=== PATIENT | female | born 1945 | race Caucasian/White ===

== ENCOUNTER → 2016-10-23 | Outpatient (CLI) | payer MEDICARE ==
--- NOTE | 2016-10-24 09:33 | MM ---
Reason for exam: screening (asymptomatic). Last mammogram was performed 1 year and 4 months ago. History: Patient is postmenopausal and had first child at age 38. Cancelled Right US Needle Biopsy of the right breast, April 03, 2006. Took estrogen for 4 years 7 months beginning at age 56. Physical Findings: A clinical breast exam by your physician is recommended on an annual basis and results should be correlated with mammographic findings. MG 3D Screening Mammo W/Cad Bilateral CC and MLO view(s) were taken. Prior study comparison: July 05, 2015, right breast MG work up mamm w CAD RT. June 27, 2015, bilateral MG screening mammo w CAD. The breast tissue is heterogeneously dense. This may lower the sensitivity of mammography. There is chronic nodularity bilaterally. There is no dominant lesion. No significant changes when compared with prior studies. ASSESSMENT: Benign, BI-RAD 2 RECOMMENDATION: Routine screening mammogram of both breasts in 1 year.
== END | disposition home or self-care (01) ==
LOC: RADMAMWWP 14:06
PROVIDERS: ATTEND Family Medicine
DX: Z12.31 Encounter for screening mammogram for malignant neoplasm of breast (principal)
CPT/HCPCS: 77063; G0202

== ENCOUNTER → 2021-02-22 | Outpatient (CLI) | payer MEDICARE ==
[2021-02-22 08:59] VITALS: BP 151/78; PULSE 73; RESP 18; TEMP 98.4
--- NOTE | 2021-02-22 09:52 | P.GSHP ---
History of Present Illness H&P Date: 02/22/21 Chief Complaint: Abnormal left breast mammogram Tamra is a 75-year-old white female who was noted to have an abnormal left breast mammogram and is seen in consultation for Dr. Ca. The patient had a bilateral mammogram performed on 1220 120. This revealed an area of concern in the left breast for which a diagnostic left breast mammogram was performed. This was persistent and an ultrasound was performed. The ultrasound revealed a 0.9 x 0.5 cm lesion widely than tall located 1 cm from the nipple at the 5 o'clock position. Ultrasound aspiration versus core biopsy was recommended. The patient does not feel any lumps masses or nodules of concern. She is not complaining of any nipple discharge or skin changes. He has not had any recent trauma or infection of the breast. She did have a condition for biopsy in the remote past however when the looked at the breast when she came back and they did not see anything of concern in just follow her conservatively. Caffeine: 2-3 cups per day Nicotine: Negative stopped smoking 38 years ago Chocolate: Occasional Family history: Mother: Melanoma Patient: Previous skin cancer Hormonal history: Menarche: 13 1 miscarriage, first at 38, didn't breast-feed Hysterectomy at approximately 43 total abdominal hysterectomy with nephrectomy for fibroid tumors and bleeding: Approximately 1 year after the hysterectomy control pills: Negative Past surgical history: Total abdominal hysterectomy with bilateral salpingo-oophorectomy Appendectomy Tonsillectomy Left knee surgery Medical history: High cholesterol Anxiety/ is recently HTN Social history: Alcohol: Occasional Nicotine: Stopped 38 years ago Drugs: Negative - Constitutional Constitutional: Denies chills, Denies fever - EENT Eyes: denies blurred vision, denies pain Ears: deny: decreased hearing, tinnitus Ears, nose, mouth and throat: Denies headache, Denies sore throat - Breasts Breasts: bilateral: as per HPI - Cardiovascular Cardiovascular: Denies chest pain, Denies shortness of breath - Respiratory Respiratory: Denies cough, Denies 7 - Gastrointestinal Gastrointestinal: Denies abdominal pain, Denies diarrhea, Denies nausea, Denies vomiting - Genitourinary (Female) Genitourinary: Denies dysuria, Denies hematuria - Menstruation Menstruation: Reports post hysterectomy (contracture of fifth digit on the right) - Musculoskeletal Comment: Contracture fifth digit on the right hand Musculoskeletal: Denies myalgias - Integumentary Integumentary: Denies pruritus, Denies rash - Neurological Neurological: Denies numbness, Denies weakness - Psychiatric Psychiatric: Reports anxiety - Endocrine Endocrine: Denies fatigue, Denies weight change - Hematologic/Lymphatic Comment: none - Allergic/Immunologic Allergic/Immunologic: Reports as per HPI Past Medical History Past Medical History: Hyperlipidemia, Hypertension History of Any Multi-Drug Resistant Organisms: None Reported Past Surgical History: Appendectomy, Hysterectomy, Orthopedic Surgery, Tonsillectomy Additional Past Surgical History / Comment(s): left knee arthroscopy Past Anesthesia/Blood Transfusion Reactions: No Reported Reaction Past Psychological History: Anxiety Smoking Status: Former smoker Past Alcohol Use History: Occasional Past Drug Use History: None Reported Medications and Allergies Home Medications Medication Instructions Recorded Confirmed Type Melatonin 5 mg PO HS 02/18/21 02/22/21 History Simvastatin [Zocor] 20 mg PO DAILY 02/18/21 02/22/21 History buPROPion HCL [Wellbutrin XL] 300 mg PO DAILY 02/18/21 02/22/21 History hydroCHLOROthiazide 25 mg PO DAILY 02/18/21 02/22/21 History lisinopriL [Zestril] 5 mg PO DAILY 02/18/21 02/22/21 History Allergies Allergy/AdvReac Type Severity Reaction Status Date / Time Penicillins Allergy Unknown Verified 02/22/21 08:50 Surgical - Exam Vital Signs Temp Pulse Resp BP Pulse Ox 98.4 F 73 18 151/78 98 02/22/21 08:51 02/22/21 08:51 02/22/21 08:51 02/22/21 08:51 02/22/21 08:51 BMI 25.2 - General no distress - Eyes normal ocular movement - ENT normal pinna, normal nares - Neck no masses, trachea midline - Respiratory normal respiratory effort, clear to auscultation - Cardiovascular Rhythm: regular Heart Sounds: normal: S1, S2 - Integumentary normal turgor - Neurologic no disoriented, no combative - Musculoskeletal normal gait - Psychiatric oriented to time, oriented to person, oriented to place, speech is normal, memory intact Breast exam: BRA: 34B inspection: bilateral grade 2 ptosis palpation: Carrasco: Multiple positional exam fibrocystic changes, no dominant masses or nodules of concern Right axilla: No adenopathy of concern Left breast: Multi-positional exam other cystic changes, particularly attention to the area of concern did not reveal any discrete masses or nodules of concern Left axilla: No adenopathy of concern Results mammogram and ultrasound reviewed Assessment and Plan Assessment: Impression: High cholesterol Anxiety/ is recently HTN Bilateral fibrocystic breast changes Radiographic abnormality left breast Plan: 1. Ultrasound guided FNA versus core biopsy of left breast 2. Follow-up after ultrasound biopsy Risks and benefits of procedure discussed with the patient. It is possible that at the time of the procedure that there will not be able to be demonstrated the area of concern in which case 6 month precautionary films would be recommended. CC: Dr. Ca Encounter 45 minutes, time spent excluding patient, reviewing the records, and counseling.
== END ==
LOC: WWCWWP 08:42
PROVIDERS: ATTEND Surgery
DX: N60.12 Diffuse cystic mastopathy of left breast (principal); N60.11 Diffuse cystic mastopathy of right breast; I10 Essential (primary) hypertension; E78.00 Pure hypercholesterolemia, unspecified; F41.9 Anxiety disorder, unspecified; E78.5 Hyperlipidemia, unspecified; Z87.891 Personal history of nicotine dependence; Z79.899 Other long term (current) drug therapy; Z88.0 Allergy status to penicillin

== ENCOUNTER → 2021-02-27 | Day surgery (SDC) | payer MEDICARE ==
[2021-02-27 07:35] VITALS: BP 145/77; PULSE 73; RESP 16; TEMP 98.2
--- NOTE | 2021-02-27 09:40 | USB ---
Exam: Ultrasound discontinued breast biopsy left COMPARISON: Mammogram 1 05/05/2021 and 10/18/2020 ultrasound outside institution. FINDINGS: The left Ultrasound Breast biopsy was canceled. At 5:00 there is a minimally complex cyst w ith partial septation measuring 0.8 x 0.4 x 0.4 cm. This is probably benign. Recommend 6 month follow -up left breast ultrasound. IMPRESSION: 1. The left ultrasound breast biopsy was canceled. At 5:00, there is a minimally complex cyst measuri ng 8 mm. This is probably benign. Recommend 6 month follow-up left breast ultrasound. BI-RADS 3: Probably benign Recommend 6 month follow-up left breast ultrasound.
== END ==
LOC: RADUSWWP 07:02
PROVIDERS: ATTEND Surgery
DX: R92.8 Other abnormal and inconclusive findings on diagnostic imaging of breast (principal); Z53.8 Procedure and treatment not carried out for other reasons; N60.02 Solitary cyst of left breast; Z88.0 Allergy status to penicillin

== ENCOUNTER → 2021-08-30 | Outpatient (CLI) | payer MEDICARE ==
--- NOTE | 2021-09-02 09:42 | USB ---
Reason for exam: follow-up at short interval from prior study. History: Patient is postmenopausal and had first child at age 38. US discontinued breast bx LT of the left breast, February 27, 2021. Cancelled Right US Needle Biopsy of the right breast, April 03, 2006. Took estrogen for 4 years 7 months beginning at age 56. Physical Findings: Nurse Summary: 0.5cm palpable (nurse ms). US Breast Limited LT Left limited breast ultrasound including focal area of concern, retroareolar and axilla demonstrates a 0.8 x 0.3 x 0.6cm oval lesion at 1 o'clock anechoic but possible feeding vessel and a 0.7 x 0.4 x 0.5cm cystic lesion at 5 o'clock, stable in size slightly better defined. These results were verbally communicated with the patient and result sheet given to the patient on 08/30/21. ASSESSMENT: Suspicious, BI-RAD 4 RECOMMENDATION: Ultrasound core biopsy of the left breast. (+/- FNA) 1 o'clock lesion Called office with mammographic findings and has scheduled an appointment for the patient with Dr. Goss on 09/06/21. PRELIMINARY REPORT CALLED AND FAXED TO DR. GOSS ON 09/02/21.
== END | disposition home or self-care (01) ==
LOC: RADUSWWP 08:31
PROVIDERS: ATTEND Surgery
DX: N60.02 Solitary cyst of left breast (principal); Z78.0 Asymptomatic menopausal state

== ENCOUNTER → 2021-09-06 | Outpatient (CLI) | payer MEDICARE ==
[2021-09-06 08:48] VITALS: BP 170/80; PULSE 75; RESP 16; TEMP 98
--- NOTE | 2021-09-06 09:33 | P.PN ---
Subjective Progress Note Date: 09/06/21 Tamra is a 75-year-old white female who was noted to have an abnormal left breast mammogram and was seen in consultation for Dr. Ca. The patient had a bilateral mammogram performed on 745741. This revealed an area of concern in the left breast for which a diagnostic left breast mammogram was performed. This was persistent and an ultrasound was performed. The ultrasound revealed a 0.9 x 0.5 cm lesion widely than tall located 1 cm from the nipple at the 5 o'clock position. Ultrasound aspiration versus core biopsy was recommended. The patient did not feel any lumps masses or nodules of concern. She was not complaining of any nipple discharge or skin changes. She had not had any recent trauma or infection of the breast. She did have a recommendation for biopsy in the remote past however when the looked at the breast when she came back they did not see anything of concern and followed her conservatively. An attempt at a biopsy was done on 198 621. At that time there was felt to be a minimally complex cyst measuring 8 mm felt to be probably benign and six-month follow-up left breast ultrasound was recommended. Her most recent left breast ultrasound was performed on [id number]. This revealed a 0.8 x 0.6 cm lesion at 1:00 anechoic the possible feeding vessel and a 0.7 x 0.5 cm cystic lesion at 5:00 stable. The recommendation was that this was considered suspicious and ultrasound-guided core biopsy plus or minus FNA was recommended. The patient does not feel any lesions of concern in either breast. She is not complaining of any nipple discharge or skin changes. Caffeine: 2-3 cups per day Nicotine: Negative stopped smoking 38 years ago Chocolate: Occasional Family history: Mother: Melanoma Patient: Previous skin cancer Hormonal history: Menarche: 13 1 miscarriage, first at 38, didn't breast-feed Hysterectomy at approximately 43 total abdominal hysterectomy with nephrectomy for fibroid tumors and bleeding: Approximately 1 year after the hysterectomy control pills: Negative Past surgical history: Total abdominal hysterectomy with bilateral salpingo-oophorectomy Appendectomy Tonsillectomy Left knee surgery Medical history: High cholesterol Anxiety/ is recently HTN Social history: Alcohol: Occasional Nicotine: Stopped 38 years ago Drugs: Negative - Constitutional Constitutional: Denies chills, Denies fever - EENT Eyes: denies blurred vision, denies pain Ears: deny: decreased hearing, tinnitus Ears, nose, mouth and throat: Denies headache, Denies sore throat - Breasts Breasts: bilateral: as per HPI - Cardiovascular Cardiovascular: Denies chest pain, Denies shortness of breath - Respiratory Respiratory: Denies cough - Gastrointestinal Gastrointestinal: Denies abdominal pain, Denies diarrhea, Denies nausea, Denies vomiting - Genitourinary (Female) Genitourinary: Denies dysuria, Denies hematuria - Menstruation Menstruation: Reports post hysterectomy (contracture of fifth digit on the right) - Musculoskeletal Comment: Contracture fifth digit on the right hand Musculoskeletal: Denies myalgias - Integumentary Integumentary: Denies pruritus, Denies rash - Neurological Neurological: Denies numbness, Denies weakness - Psychiatric Psychiatric: Reports anxiety - Endocrine Endocrine: Denies fatigue, Denies weight change - Hematologic/Lymphatic Comment: none - Allergic/Immunologic Allergic/Immunologic: Reports as per HPI Objective - Vital Signs Vital signs: Vital Signs Temp 98.0 F 09/06/21 08:39 Pulse 75 09/06/21 08:39 Resp 16 09/06/21 08:39 BP 170/80 09/06/21 08:39 Pulse Ox Intake & Output 09/05/21 09/06/21 09/06/21 18:59 06:59 18:59 Weight 71.668 kg - Constitutional General appearance: Present: cooperative - EENT Eyes: Present: EOMI ENT: Present: hearing grossly normal - Neck Neck: Present: normal ROM - Respiratory Respiratory: bilateral: CTA - Cardiovascular Heart sounds: normal: S1, S2 - Gastrointestinal General gastrointestinal: Present: soft - Integumentary Integumentary: Present: normal turgor - Musculoskeletal Musculoskeletal: Present: gait normal - Psychiatric Psychiatric: Present: A&O x's 3, appropriate affect, intact judgment & insight - Additional findings Additional findings: Breast Exam: BRA: 34B inspection: grade 2 ptosis bilateral palpation: right breast: multipositional exam no dominate masses or nodules of concern right axilla: no dominant masses or nodules of concern Left breast: Multiple positional exam no dominant masses or nodules of concern Left axilla: No adenopathy of concern Assessment and Plan Assessment: Impression: 1. Fibrocystic breast changes bilateral 2. Recent repeat ultrasound left breast recommend aspiration versus biopsy left breast lesion Plan: 1. Ultrasound-guided core biopsy versus FNA left breast lesion 2. Patient to follow-up after biopsy CC: Dr. Ca
== END ==
LOC: WWCWWP 08:31
PROVIDERS: ATTEND Surgery
DX: N60.11 Diffuse cystic mastopathy of right breast (principal); N60.12 Diffuse cystic mastopathy of left breast; I10 Essential (primary) hypertension; F41.9 Anxiety disorder, unspecified; E78.00 Pure hypercholesterolemia, unspecified; Z87.891 Personal history of nicotine dependence; Z79.899 Other long term (current) drug therapy; Z88.0 Allergy status to penicillin

== ENCOUNTER → 2021-10-02 | Day surgery (SDC) | payer MEDICARE ==
[2021-10-02 09:57] VITALS: RESP 16; TEMP 98
[2021-10-02 11:30] VITALS: BP 166/77; PULSE 75
--- NOTE | 2021-10-02 12:27 | USB ---
EXAMINATION TYPE: US biopsy breast VAD LT DATE OF EXAM: 10/02/2021 CLINICAL HISTORY: R92.8, Abnormal mammogram. TECHNIQUE: Ultrasound guided vaccuum assisted core biopsy of left breast. COMPARISON: NONE FINDINGS: The ultrasound guided core biopsy procedure was explained to the patient. The risks, benefits, alternatives were discussed. An informed consent was then obtained. Timeout was performed. The patient was placed in supine positioning for imaging and for the procedure. The overlying skin was prepped with betadine and sterilely draped in usual sterile fashion. Lidocaine 1% was used as anesthetic into the skin and deeper breast tissue up to area of concern in the breast. A small skin carson was made with surgical scalpel. Under ultrasound guidance, a 12-gauge vacuum assisted biopsy device was used to obtain 3 core samples. A biopsy clip was left in lesion. A ribbon clip was placed. Good hemostasis was obtained with direct pressure. Discharge instructions were discussed with the patient. The patient will follow up with the referring physician for results. Postprocedure mammogram: The patient was transferred to mammography for physician ordered post procedure mammogram for clip placement verification. The clip is in the expected region of the biopsy. The patient tolerated the procedure well without any immediate complication. The patient was discharged to home in stable condition. IMPRESSION: 1. Successful ultrasound guided biopsy left breast. Recommendations: 1. Recommendations are pending pathology results. Pathology Results: Benign LEFT BREAST, ONE O'CLOCK, ULTRASOUND GUIDED CORE BIOPSY: Fibrocystic changes including cysts and fibrosis. Recommendation Follow up ultrasound of the left breast in 6 months. NIECY
--- NOTE | 2021-10-02 12:28 | MM ---
EXAMINATION TYPE: US biopsy breast VAD LT DATE OF EXAM: 10/02/2021 CLINICAL HISTORY: R92.8, Abnormal mammogram. TECHNIQUE: Ultrasound guided vaccuum assisted core biopsy of left breast. COMPARISON: NONE FINDINGS: The ultrasound guided core biopsy procedure was explained to the patient. The risks, benef its, alternatives were discussed. An informed consent was then obtained. Timeout was performed. The patient was placed in supine positioning for imaging and for the procedure. The overlying skin w as prepped with betadine and sterilely draped in usual sterile fashion. Lidocaine 1% was used as ane sthetic into the skin and deeper breast tissue up to area of concern in the breast. A small skin hyun k was made with surgical scalpel. Under ultrasound guidance, a 12-gauge vacuum assisted biopsy device was used to obtain 3 core samples . A biopsy clip was left in lesion. A ribbon clip was placed. Good hemostasis was obtained with direct pressure. Discharge instructions were discussed with the syd mramolejo. The patient will follow up with the referring physician for results. Postprocedure mammogram: The patient was transferred to mammography for physician ordered post proced ure mammogram for clip placement verification. The clip is in the expected region of the biopsy. The patient tolerated the procedure well without any immediate complication. The patient was dischar ged to home in stable condition. IMPRESSION: 1. Successful ultrasound guided biopsy left breast. Recommendations: 1. Recommendations are pending pathology results.
== END ==
LOC: RADUSWWP 09:35
PROVIDERS: ATTEND Surgery
DX: N60.12 Diffuse cystic mastopathy of left breast (principal); R92.8 Other abnormal and inconclusive findings on diagnostic imaging of breast
CPT/HCPCS: 88305; 77065; 19083; A4648; J2001

== ENCOUNTER → 2021-10-11 | Outpatient (CLI) | payer MEDICARE ==
[2021-10-11 08:51] VITALS: BP 137/80; PULSE 79; RESP 18; TEMP 98.4
--- NOTE | 2021-10-11 09:10 | P.PN ---
Subjective Progress Note Date: 10/11/21 Principal diagnosis: Fibrocystic breast changes Tamra is a 75-year-old white female status post ultrasound-guided core biopsy of the left breast and 1220 [id number]. Pathology revealed fibrocystic changes including cystoscopy and fibrosis. This was felt to be benign concorda nt and follow-up ultrasound of the left breast in 6 months was recommended. She tolerated the biopsy without difficulty. Objective - Vital Signs Vital signs: Vital Signs Temp 98.4 F 10/11/21 08:49 Pulse 79 10/11/21 08:49 Resp 18 10/11/21 08:49 BP 137/80 10/11/21 08:49 Pulse Ox 100 10/11/21 08:49 Intake & Output 10/10/21 10/11/21 10/11/21 18:59 06:59 18:59 Weight 71.214 kg - Exam BMI 23.2 - Constitutional General appearance: Present: cooperative - EENT Eyes: Present: EOMI ENT: Present: hearing grossly normal - Neck Neck: Present: normal ROM - Respiratory Respiratory: bilateral: CTA - Cardiovascular Heart sounds: normal: S1, S2 - Integumentary Integumentary Comment(s): Left breast with some ecchymosis in the periareolar region no evidence of infection No evidence of hematoma Assessment and Plan Assessment: Impression: Patient status post left breast ultrasound-guided core biopsy/benign concordant Plan: Repeat left breast ultrasound in 6 months with physician exam at that time Patient's last bilateral mammogram was on X-rays reviewed with Dr. Gastelum. Cc: Dr. Chu
== END ==
LOC: WWCWWP 08:20
PROVIDERS: ATTEND Surgery
DX: N60.12 Diffuse cystic mastopathy of left breast (principal); Z88.0 Allergy status to penicillin

== ENCOUNTER → 2022-03-24 | Outpatient (CLI) | payer MEDICARE ==
--- NOTE | 2022-03-24 10:03 | USB ---
Reason for Exam: Follow-up at short interval from prior study. Patient History: Menarche at age 13. First Full-Term at age 38. Late child-bearing (after 31). Left ovary removed at age 56. Right ovary removed at age 56. Hysterectomy at age 56. Postmenopausal. Estrogen for 4 years, 7 months, from age 56 until age 60. 10/02/2021, Benign Core Biopsy on the left side. 02/27/2021, US discontinued breast bx LT on the left side. 04/03/2006, Cancelled Right US Needle Biopsy on the right side. Risk Values: Khalida 5 year model risk: 2.9%. NCI Lifetime model risk: 6.2%. Technique: Method: Targeted. Prior Study Comparison: 10/23/2016 Bilateral Screening Mammogram, [facility]. 09/01/2018 Bilateral Screening Mammogram, [facility]. 10/02/2021 Left Diagnostic Mammogram, [facility]. Findings: The upper outer quadrant of the left breast, the axilla of the left breast and the retroareolar of the left breast were scanned. There is a complex cyst present at the 4:00 position. This appears to been present on the prior examination labeled 5:00. Follow-up upper outer quadrant left breast in 6 months is recommended. Additional small cysts are present in the upper outer quadrant left breast.. Overall Assessment: Probably benign, BI-RAD 3 Management: Diagnostic Breast Ultrasound of the left breast in 6 months. A clinical breast exam by your physician is recommended on an annual basis and results should be correlated with mammographic findings. Electronically signed and approved by: Davide Tomlin D.O. Radiologis
== END | disposition home or self-care (01) ==
LOC: RADUSWWP 09:22
PROVIDERS: ATTEND Surgery
DX: N60.02 Solitary cyst of left breast (principal); Z78.0 Asymptomatic menopausal state

== ENCOUNTER → 2022-04-18 | Outpatient (CLI) | payer MEDICARE ==
[2022-04-18 11:46] VITALS: BP 150/72; PULSE 67; RESP 16; TEMP 98.3
--- NOTE | 2022-04-18 11:50 | P.PN ---
Subjective Progress Note Date: 04/18/22 Tamra is a 76 year old white female status post an ultrasound guided core biopsy on 10-02-21. Pathology was benign fibrocystic changes. She notes some nodularity at the core biopsy site otherwise no most masses or nodules of concern in her breast. An ultrasound was done of the vas site on . This was felt to be benign BIRADS 3 and a diagnostic ultrasound in 6 months was recommended. Caffeine: 2-3 cups per day Nicotine: Negative stopped smoking 38 years ago Chocolate: Occasional Family history: Mother: Melanoma Patient: Previous skin cancer Hormonal history: Menarche: 13 1 miscarriage, first at 38, didn't breast-feed Hysterectomy at approximately 43 total abdominal hysterectomy with nephrectomy for fibroid tumors and bleeding: Approximately 1 year after the hysterectomy control pills: Negative Past surgical history: Total abdominal hysterectomy with bilateral salpingo-oophorectomy Appendectomy Tonsillectomy Left knee surgery Medical history: High cholesterol Anxiety/ is recently HTN hip pain left side/ posibble replacement Social history: Alcohol: Occasional Nicotine: Stopped 39 years ago Drugs: Negative - Constitutional Constitutional: Denies chills, Denies fever - EENT Eyes: denies blurred vision, denies pain Ears: deny: decreased hearing, tinnitus Ears, nose, mouth and throat: Denies headache, Denies sore throat - Breasts Breasts: bilateral: as per HPI - Cardiovascular Cardiovascular: Denies chest pain, Denies shortness of breath - Respiratory Respiratory: Denies cough - Gastrointestinal Gastrointestinal: Denies abdominal pain, Denies diarrhea, Denies nausea, Denies vomiting - Genitourinary (Female) Genitourinary: Denies dysuria, Denies hematuria - Menstruation Menstruation: Reports post hysterectomy (contracture of fifth digit on the right) - Musculoskeletal Comment: Contracture fifth digit on the right hand Musculoskeletal: Denies myalgias - Integumentary Integumentary: Denies pruritus, Denies rash - Neurological Neurological: Denies numbness, Denies weakness - Psychiatric Psychiatric: Reports anxiety - Endocrine Endocrine: Denies fatigue, Denies weight change - Hematologic/Lymphatic Comment: none - Allergic/Immunologic Allergic/Immunologic: Reports as per HPI Objective - Vital Signs Vital signs: Vital Signs Temp 98.3 F 04/18/22 11:29 Pulse 67 04/18/22 11:29 Resp 16 04/18/22 11:29 BP 150/72 04/18/22 11:29 Pulse Ox 98 04/18/22 11:29 FiO2 Intake & Output 04/17/22 04/18/22 04/18/22 18:59 06:59 18:59 Weight 71.668 kg - Constitutional General appearance: Present: cooperative - EENT Eyes: Present: EOMI ENT: Present: hearing grossly normal - Neck Neck: Present: normal ROM - Respiratory Respiratory: bilateral: CTA - Cardiovascular Rhythm: regular Heart sounds: normal: S1, S2 - Gastrointestinal General gastrointestinal: Present: soft - Integumentary Integumentary: Present: normal turgor - Musculoskeletal Musculoskeletal: Present: gait normal - Psychiatric Psychiatric: Present: A&O x's 3, appropriate affect, intact judgment & insight - Additional findings Additional findings: Breast Exam: BRA: 36A inspection: bilateral grade 3 ptosis, two dark skin nevi left breast Palpation: Right breast: Multi-positional exam fibrocystic changes no dominant masses or not his of concern Right axilla: No adenopathy of concern Left breast: Multi-positional exam fibrocystic changes no dominant masses or nodules of concern Left axilla: No adenopathy of concern Assessment and Plan Assessment: Impression: 2 dark nevi left breast Patient's last bilateral mammogram September 2020/patient is for bilateral mammogram Most recent ultrasound left breast recommend repeat left breast ultrasound in 6 months Fibrocystic breast changes Plan: Bilateral mammogram at this time if this is benign then repeat ultrasound of left breast in 6 months Excision of skin nevi 2 dark left breast Primary with dermatology to follow rest of scan Ultrasound left breast in 6 months CC: Dr. Ca
== END ==
LOC: WWCWWP 11:08
PROVIDERS: ATTEND Surgery
DX: N60.11 Diffuse cystic mastopathy of right breast (principal); N60.12 Diffuse cystic mastopathy of left breast; D22.5 Melanocytic nevi of trunk; E78.00 Pure hypercholesterolemia, unspecified; F41.9 Anxiety disorder, unspecified; I10 Essential (primary) hypertension; Z87.891 Personal history of nicotine dependence; Z88.0 Allergy status to penicillin

== ENCOUNTER → 2022-04-21 | Outpatient (CLI) | payer MEDICARE ==
--- NOTE | 2022-04-22 11:32 | MM ---
Reason for Exam: Screening (asymptomatic). Last mammogram was performed 1 year(s) and 6 month(s) ago. Patient History: Menarche at age 13. First Full-Term at age 38. Late child-bearing (after 30). Left ovary removed at age 56. Right ovary removed at age 56. Hysterectomy at age 56. Postmenopausal. Estrogen for 4 years, 7 months, from age 56 until age 60. 10/02/2021, Benign Core Biopsy on the left side. 02/27/2021, US discontinued breast bx LT on the left side. 04/03/2006, Cancelled Right US Needle Biopsy on the right side. Risk Values: Khailda 5 year model risk: 2.9%. NCI Lifetime model risk: 6.2%. Prior Study Comparison: 10/23/2016 Bilateral Screening Mammogram, [facility]. 09/01/2018 Bilateral Screening Mammogram, [facility]. 10/02/2021 Left Diagnostic Mammogram, [facility]. Tissue Density: The breast tissue is extremely dense which could obscure a lesion on mammography. Findings: Analyzed By CAD. There is no suspicious group of microcalcifications or new suspicious mass in either breast. Chronic nodularity of the right breast. Benign-appearing calcifications. Asymmetric density in the central lower aspect of the left breast. Overall Assessment: Incomplete: need additional imaging evaluation, BI-RAD 0 Management: Special View Mammogram of the left breast. A clinical breast exam by your physician is recommended on an annual basis and results should be correlated with mammographic findings. Electronically signed and approved by: Alfa Sorto M.D. Radiologis
== END | disposition home or self-care (01) ==
LOC: RADMAMWWP 09:59
PROVIDERS: ATTEND Surgery
DX: Z12.31 Encounter for screening mammogram for malignant neoplasm of breast (principal); Z78.0 Asymptomatic menopausal state
CPT/HCPCS: 77063; 77067

== ENCOUNTER → 2022-04-29 | Outpatient (CLI) | payer MEDICARE ==
--- NOTE | 2022-04-29 11:24 | USB ---
Reason for Exam: Additional evaluation requested from abnormal screening. Patient History: Menarche at age 13. First Full-Term at age 38. Late child-bearing (after 31). Left ovary removed at age 56. Right ovary removed at age 56. Hysterectomy at age 56. Postmenopausal. Estrogen for 4 years, 7 months, from age 56 until age 60. 10/02/2021, Benign Core Biopsy on the left side. 02/27/2021, US discontinued breast bx LT on the left side. 04/03/2006, Cancelled Right US Needle Biopsy on the right side. Risk Values: Khalida 5 year model risk: 2.9%. NCI Lifetime model risk: 6.2%. Technique: Elastography: Shear-wave. Prior Study Comparison: 10/12/2020 Left MG diagnostic mammo LT w CAD - 2, [facility]. 10/02/2021 Left Diagnostic Mammogram, [facility]. 04/21/2022 Bilateral MG 3D screening mammo w/cad, [facility]. Findings: The lateral section of the breast of the left breast, the axilla of the left breast and the retroareolar of the left breast were scanned. There is a 1 cm lobulated simple appearing cyst concordant with the mammographic finding.. Overall Assessment: Probably benign, BI-RAD 3 Management: Diagnostic Mammogram of the left breast. A clinical breast exam by your physician is recommended on an annual basis and results should be correlated with mammographic findings. Electronically signed and approved by: Alfa Sorto M.D. Radiologis
--- NOTE | 2022-05-12 13:59 | MM ---
Reason for Exam: Additional evaluation requested from abnormal screening. Last screening mammogram was performed less than 1 month ago. Patient History: Menarche at age 13. First Full-Term at age 38. Late child-bearing (after 31). Left ovary removed at age 56. Right ovary removed at age 56. Hysterectomy at age 56. Postmenopausal. Estrogen for 4 years, 7 months, from age 56 until age 60. 10/02/2021, Benign Core Biopsy on the left side. 02/27/2021, US discontinued breast bx LT on the left side. 04/03/2006, Cancelled Right US Needle Biopsy on the right side. Risk Values: Khalida 5 year model risk: 2.9%. NCI Lifetime model risk: 6.2%. Prior Study Comparison: 10/12/2020 Left MG diagnostic mammo LT w CAD - 2, [facility]. 10/02/2021 Left Diagnostic Mammogram, [facility]. 04/21/2022 Bilateral MG 3D screening mammo w/cad, [facility]. Tissue Density: Left: The breast tissue is heterogeneously dense. This may lower the sensitivity of mammography. Findings: Analyzed By CAD. Persistent lobulated density along the intersegmental margin of the left breast. Overall Assessment: Incomplete: need additional imaging evaluation, BI-RAD 0 Management: Diagnostic Breast Ultrasound of the left breast. A clinical breast exam by your physician is recommended on an annual basis and results should be correlated with mammographic findings. This exam should not preclude additional follow-up of suspicious palpable abnormalities. Results were given to the patient verbally at the time of exam. Electronically signed and approved by: Alfa Sorto M.D. Radiologis
== END | disposition home or self-care (01) ==
LOC: RADMAMWWP 10:15
PROVIDERS: ATTEND Surgery
DX: R92.8 Other abnormal and inconclusive findings on diagnostic imaging of breast (principal); N60.02 Solitary cyst of left breast
CPT/HCPCS: 77065; 76642; G0279; 77061

== ENCOUNTER → 2022-07-03 | Outpatient (CLI) | payer MEDICARE ==
[2022-07-03 09:07] VITALS: BP 131/76; PULSE 74; RESP 16; TEMP 98.3
--- NOTE | 2022-07-03 10:07 | P.PN ---
Subjective Progress Note Date: 07/03/22 Principal diagnosis: fibrocystic breast changes/ skin nevi left breast Tamra is a 76-year-old white female status post bilateral mammogram performed on after which diagnostic left breast mammogram and ultrasound was recommended. This was performed on . The results were BIRADS 3 and repeat left breast mammogram in 6 months is recommended. The patient herself is not complaining of any new lumps masses or not his of concern in either breast. She does have a superficial skin change in the lateral aspect of the left breast which was non-worrisome. The patient's Khalida risk evaluation revealed a 2.9% risk at 5 years we have discussed chemoprevention and she has declined. She was going to have to dark nevi removed from her left breast however she is having a total hip replacement on Thursday and we are going to do this after her hip replacement. Objective - Vital Signs Vital signs: Vital Signs Temp 98.3 F 07/03/22 09:04 Pulse 74 07/03/22 09:04 Resp 16 07/03/22 09:04 BP 131/76 07/03/22 09:04 Pulse Ox 99 07/03/22 09:04 FiO2 Intake & Output 07/02/22 07/03/22 07/03/22 18:59 06:59 18:59 Weight 71.668 kg - Exam BMI: 23.3 - Constitutional General appearance: Present: cooperative - EENT Eyes: Present: EOMI ENT: Present: hearing grossly normal - Neck Neck: Present: normal ROM - Respiratory Respiratory: bilateral: CTA - Cardiovascular Rhythm: regular Heart sounds: normal: S1, S2 - Integumentary Integumentary Comment(s): 2 dark nevi left breast Integumentary: Present: normal turgor - Psychiatric Psychiatric: Present: A&O x's 3 - Additional findings Additional findings: Breast examination: Sudhir: 30 6A Inspection: Bilateral grade 3 ptosis, 2 Isaias skin nevi left breast Palpation: Right breast: Positional exam fibrocystic changes no dominant masses or nodules of concern Right axilla: No adenopathy of concern Left breast: Multi-positional exam fibrocystic changes no dominant masses or nodules of concern Left axilla: No adenopathy of concern Assessment and Plan Assessment: Impression/Plan: 2 Isaias nevi left breast Bilateral mammogram in 1 year Repeat left breast mammogram 6 months Patient to follow up after hip replacement in 2 months for excision of skin nevi CC:
== END | disposition home or self-care (01) ==
LOC: WWCWWP 08:53
PROVIDERS: ATTEND Surgery
DX: Z53.9 Procedure and treatment not carried out, unspecified reason (principal)

== ENCOUNTER → 2022-07-04 | Outpatient (CLI) | payer MEDICARE | END | disposition home or self-care (01) | LOC: LABPAT 09:46 | PROVIDERS: ATTEND Orthopaedic Surgery | DX: Z01.812 Encounter for preprocedural laboratory examination (principal); M16.12 Unilateral primary osteoarthritis, left hip; Z22.322 Carrier or suspected carrier of Methicillin resistant Staphylococcus aureus | CPT/HCPCS: 87070 ==

== ENCOUNTER 2022-07-14 08:03 | Day surgery (SDC) | payer MEDICARE ==
--- NOTE | 2022-07-13 23:20 | HP ---
HISTORY AND PHYSICAL DATE OF SURGERY: 07/14/2022. HISTORY OF PRESENT ILLNESS: Tamra Orourke is a 76-year-old patient, seen with symptomatic left hip osteoarthritis. We discussed options for treatment. She elected to proceed with direct anterior left total hip arthroplasty. Consent regarding the procedure was obtained. Medical clearance was provided by . PAST MEDICAL HISTORY: Hypertension, hyperlipidemia. PAST SURGICAL HISTORY: None. DAILY MEDICATIONS: 1. Hydrochlorothiazide. 2. Lisinopril. 3. Simvastatin. 4. Wellbutrin. 5. Motrin. ALLERGIES: None. SOCIAL HISTORY: She denies tobacco use. PHYSICAL EVALUATION OF THE LEFT HIP: She has diffuse tenderness about the hip girdle. Positive hip impingement sign. Straight-leg raise negative. Distal neurovascular exam is intact. RADIOGRAPHS: Left hip radiographs reveal severe osteoarthritic changes. IMPRESSION: 1. Left hip osteoarthritis. 2. Hypertension. 3. Hyperlipidemia. PLAN: Direct anterior left total hip arthroplasty. MMODL / IJN: [id number] /
[~2022-07-14 08:03] MED LIST: ACETAMINOPHEN TAB 500 MG TAB PO PRN; DEXAMETHASONE SOD PHOSPHATE 4 MG/ML 1 ML VIAL IV ONE; LACTATED RINGERS 1,000 ML IV SCH; LIDOCAINE 1% (10MG/ML) FOR IV START INTRADERMA PRN; MELOXICAM 7.5 MG TAB PO PRN; METOCLOPRAMIDE 5 MG/ML 2 ML VIAL IVP PRN; ONDANSETRON 4 MG/2 ML VIAL IVP ONE; TRANEXAMIC ACID IN NACL,ISO-OS 1,000 MG in SALINE 1 100ML.BAG IVPB PRN
[2022-07-14 08:54] VITALS: RESP 16
[2022-07-14] MEDS ORDERED: MIDAZOLAM 2 MG/2 ML VIAL IVP ONE (09:12)
--- NOTE | 2022-07-14 09:22 | P.ANPRN ---
Procedure Note - Anesthesia - Nerve Block Performed Left Erector Spinae Single Time Out Performed: Yes (0911) Date of Procedure: 07/14/22 Procedure Start Time: :11 Procedure Stop Time: :17 Location of Patient: PreOp Indication: Acute Post-Operative Pain, Requested by Surgeon Sedation Type: Sedate with meaningful contact maintained Preparation: Sterile Prep Position: Prone Catheter: None Needle Types: Pajunk Needle Gauge: 21 Ultrasound used to visualize needle placement: Yes Ultrasound used to observe medication spread: Yes Injectate: 0.5% Ropivacaine (see comment for volume) (25 ml of block solution containing 14 ml of 0.5% ropivacaine, 10 ML of preservative-free 0.9% normal saline mixed with 4MG of dexamethasone) Blood Aspirated: No Pain Paresthesia on Injection Noted: No Resistance on Injection: Normal Image Stored and Saved: Yes Events: Uneventful and Well Tolerated
[2022-07-14] MEDS ORDERED: ceFAZolin 1,000 MG in SODIUM CHLORIDE 0.9% 1,000 ML IRRIGATION ONE (10:50)
[2022-07-14] MEDS ORDERED: LACTATED RINGERS 1,000 ML IV ONE ×2 (10:57→11:52)
[2022-07-14] MEDS ORDERED: HYDROcodone/APAP 5-325MG 1 EACH TAB PO PRN (11:52)
[2022-07-14] MEDS ORDERED: NALOXONE 0.4 MG/ML 1 ML VIAL IV PRN (11:52)
[2022-07-14] MEDS ORDERED: HYDROmorphone 0.5 MG/0.5 ML SYRINGE IVP PRN ×3 (11:52)
[2022-07-14] MEDS ORDERED: ONDANSETRON 4 MG/2 ML VIAL IVP PRN (11:52)
[2022-07-14] MEDS ORDERED: HYDROcodone/APAP 7.5-325MG 1 EACH TAB PO PRN (11:52)
--- NOTE | 2022-07-14 11:52 | P.OP ---
Date of Procedure: 07/14/22 Preoperative Diagnosis: Left hip osteoarthritis Postoperative Diagnosis: Left hip osteoarthritis Procedure(s) Performed: Direct anterior left total hip arthroplasty Implants: 1. Depuy Corail 135 standard collar KA size 15 press-fit femoral stem 2. Depuy pinnacle 54 mm press-fit acetabular shell 3. Depuy pinnacle neutral polyethylene acetabular liner 36 mm ID 54 mm OD 4. Biolox delta ceramic femoral head +1.5 36 mm Anesthesia: GETA, regional (Erector spinae block) Surgeon: Nicola Padilla [employer] Driver #1: Robert Eddy Estimated Blood Loss (ml): 70 Pathology: other (Femoral head) Condition: stable Disposition: PACU Indications for Procedure: 76-year-old patient seen with symptomatic left hip osteoarthritis. After treatment options were discussed, she elected to proceed with direct anterior left total hip arthroplasty Operative Findings: see description of procedure Description of Procedure: The patient was taken to the operative suite after having an erector spinae block performed by the department of anesthesia for postoperative pain management. Patient underwent a general anesthetic by the department of anesthesia. Patient was then transferred to the [place] table. Patient was given preoperative IV antibiotics and TXA. Both lower extremities were placed in standard leg spars. The hip was then prepped and draped in the normal sterile orthopedic fashion. A standard anterior incision was made beginning 3 cm lateral and 1 cm distal to the ASIS extending 10 cm. Dissection was then carried down through the subcutaneous soft tissues down to the fascia overlying the tensor fascia jero. An incision was now made through the fascia. Careful dissection was taken down exposing the tensor fascia jero muscle. A Cobra retractor was now placed along the medial femoral neck and a second one along the lateral femoral neck. The venous circumflex vessels were now identified, cauterized and clipped. We identified the anterior hip capsule. An incision was made through the hip capsule along the lateral border. I performed a partial anterior capsulectomy. Retractors were now placed around the femoral neck itself. A femoral neck cut was now made with a sagittal saw. It was completed with an osteotome at the lateral neck area. The femoral head was now removed without difficulty. The extremity was now rotated to 60 of external rotation. It was locked in position. Residual labrum was now debrided out. Serial reaming was performed of the acetabulum while Nakul BADILLO assisted holding an anterior retractor for exposure. Once we reached the appropriate size and a trial was position and fit nicely. The appropriate size was now chosen opened and made available. It was introduced into the acetabulum without difficulty. The C-arm/fluoroscopy was now brought into the operative field. We made sure we had a true AP pelvic view. We now under direct C-arm/fluoroscopy introduced into the acetabular component with appropriate version and inclination. I held the cup in appropriate position well Nakul BADILLO used a mallet to seat the acetabular component. I noted the component now to be well seated and stable. Acetabular cup introduce her was removed. The C-arm was pulled back. An appropriate liner was introduced and clicked into position. It was felt to be stable. At this point retractors were removed. The extremity was now placed into 130 external rotation with no traction. The leg was now dropped to the ground and adducted. Appropriate retractors were now positioned along the proximal femur. We also placed our femoral look into position. Additional capsular releasing was performed to gain access to the proximal femur. We now used a box osteotome. A canal finder was now utilized. Serial broaching was now performed with the assistance of Nakul BADILLO tapping the broaches down with a mallet while held the broach in appropriate rotation and position. This was done until we reached the appropriate size with good overall rotational stability. Appropriate calcar planing was performed. A trial head/neck was placed into position. The hip was now reduced. The C- arm/fluoroscopy was brought back into the operative field. I obtained an AP pelvis demonstrating adequate leg length alignment. The trial components appeared adequately sized and position.. The C-arm/fluoroscopy was pulled back. Retractors were repositioned and the hip was dislocated. The leg was again taken down to the ground and adducted. Appropriate retractors were repositioned as well as the femoral hook. All trial components were removed. The femoral implant was opened along with the femoral head. The femoral implant was introduced on the appropriate handle into our pre-broached area. I held the component position well Nakul BADILLO used a mallet to seat the femoral component. The femoral component was now noted to be well seated and stable.. The femoral head was introduced with good positioning and fixation noted. Retractors were now removed. The hip was now reduced. There appeared be good positioning of the hip confirmed on intraoperative fluoroscopy. Spot films were obtained to document this. A second gram of TXA was given. The deep and superficial soft tissues were infiltrated with local analgesic. Bipolar cautery had been utilized intermittently through the procedure for hemostasis. The wound was irrigated copiously with pulse lavage mechanical irrigation. The fascia was repaired with Vicryl suture. The subcutaneous soft tissues were repaired in layers with Vicryl suture. The skin was approximated with pernio/Dermabond. Sterile dressings were applied. Patient was then awakened, transferred to a bed and taken to recovery in stable condition. Nakul BADILLO assisted with the complex procedure.
--- NOTE | 2022-07-14 11:56 | FL ---
Fluoroscopy HISTORY: Anterior hip replacement 7 seconds fluoroscopy time supplied to the referring clinician. 2 intraoperative C-arm images docume nt the procedure. See dictated report from orthopedic surgery.
[2022-07-14] MEDS: HYDROmorphone 0.5 MG/0.5 ML SYRINGE IVP PRN ×4 (11:59→12:23)
[2022-07-14] MEDS ORDERED: METOCLOPRAMIDE 5 MG/ML 2 ML VIAL IVP ONE (12:04)
[2022-07-14 12:08] VITALS: TEMP 97.1
[2022-07-14 14:07] VITALS: BP 151/74
[2022-07-14 14:17] VITALS: PULSE 73
[2022-07-14] MEDS ORDERED: ONDANSETRON 4 MG/2 ML VIAL IVP ONE (14:27)
[2022-07-14] MEDS ORDERED: HYDROcodone/APAP 5-325MG 1 EACH TAB PO ONE (14:49)
== END 2022-07-14 15:40 | disposition home health service (06) ==
LOC: OR 08:03
PROVIDERS: ATTEND Orthopaedic Surgery
DX: M16.12 Unilateral primary osteoarthritis, left hip (principal); G89.18 Other acute postprocedural pain; I10 Essential (primary) hypertension; E78.5 Hyperlipidemia, unspecified; Z79.01 Long term (current) use of anticoagulants; Z79.02 Long term (current) use of antithrombotics/antiplatelets; Z79.899 Other long term (current) drug therapy; Z79.1 Long term (current) use of non-steroidal anti-inflammatories (NSAID); Z88.0 Allergy status to penicillin; Z96.659 Presence of unspecified artificial knee joint; Z90.89 Acquired absence of other organs; Z90.49 Acquired absence of other specified parts of digestive tract
CPT/HCPCS: 97110; 97161; 64999; 86900; 86901; 86850; 88300; 73501; 27130; C1776; J2250; J1100; J2765; J0690 ×2; J2405; J1170

== ENCOUNTER → 2023-07-08 | Day surgery (SDC) | payer MEDICARE ==
[2023-07-06 10:50] VITALS: BMI 23.1
[~2023-07-08] MED LIST changes: -ACETAMINOPHEN TAB 500 MG TAB PO PRN; -DEXAMETHASONE SOD PHOSPHATE 4 MG/ML 1 ML VIAL IV ONE; -LIDOCAINE 1% (10MG/ML) FOR IV START INTRADERMA PRN; -MELOXICAM 7.5 MG TAB PO PRN; -METOCLOPRAMIDE 5 MG/ML 2 ML VIAL IVP PRN; -ONDANSETRON 4 MG/2 ML VIAL IVP ONE; +PROPOFOL 10 MG/ML 20 ML VIAL IV ONE; -TRANEXAMIC ACID IN NACL,ISO-OS 1,000 MG in SALINE 1 100ML.BAG IVPB PRN
[2023-07-08 10:57] VITALS: RESP 16; TEMP 97.7
--- NOTE | 2023-07-08 12:39 | P.PCN ---
Date of Procedure: 07/08/23 Procedure(s) Performed: BRIEF HISTORY: Patient is a 77-year-old pleasant female scheduled for an elective colonoscopy as a part of screening for colon cancer/positive cologuard. PROCEDURE PERFORMED: Colonoscopy with biopsy. PREOPERATIVE DIAGNOSIS:Screening for colon cancer/positive cooguard IV sedation per Anesthesia. PROCEDURE: After informed consent was obtained, the patient, was brought into the endoscopy unit. IV sedation was administered by Anesthesia under continuous monitoring. Digital rectal examination was normal. Initially the Olympus CF-160 flexible video colonoscope was then inserted in the rectum, gradually advanced into the cecum without any difficulty. Careful examination was performed as the scope was gradually being withdrawn. Ileocecal valve and the appendiceal orifice were visualized and appeared normal. Prep was excellent. Mucosa of the cecum, normal. In the ascending colon there were 2 small polyps measuring 3 and 40 mg in size both of which were removed by cold biopsy. Rest of the ascending colon, transverse colon, descending colon, sigmoid colon, and rectum appeared normal. Retroflexion was performed in the rectum and no lesions were seen. The patient tolerated the procedure well. IMPRESSION: 3 and 4 mm ascending colon polyp status post cold biopsy Rest of the colon appeared normal Recommendations: Findings of this examinationwere discussed with the patient [as well as a family. She was advised to follow with the biopsy results. If the biopsy reveals adenoma she can have a repeat colonoscopy in 5 years.
[2023-07-08 12:58] VITALS: BP 132/65
[2023-07-08 13:10] VITALS: PULSE 69
== END ==
LOC: ORWHC2ENDO 10:19
PROVIDERS: ATTEND Internal Medicine Gastroenterology
DX: D12.2 Benign neoplasm of ascending colon (principal); I10 Essential (primary) hypertension; E78.5 Hyperlipidemia, unspecified; F41.9 Anxiety disorder, unspecified; F32.A Depression, unspecified; Z79.899 Other long term (current) drug therapy; Z88.0 Allergy status to penicillin
CPT/HCPCS: 88305; 45380; J2704